=== PATIENT | male | born 1980 | race Hispanic/Latino ===

== ENCOUNTER 2020-08-25 23:54 | Inpatient (IN) | payer SELFPAY ==
[2020-08-26] MEDS ORDERED: Sodium Chloride 0.9% 1,000 ML IV SCH ×2 (03:45→13:00)
[2020-08-26] MEDS ORDERED: Ondansetron ODT 4 MG TAB SL PRN (03:45)
[2020-08-26] MEDS ORDERED: Ondansetron PF 4 MG/2 ML Vial IVP PRN ×2 (03:45→07:55)
[2020-08-26 06:13] VITALS: BMI 30.7
[2020-08-26] MEDS ORDERED: Guaifenesin DM 100-10/5 ML UDCUP PO PRN (07:55)
[2020-08-26] MEDS ORDERED: hydrALAZINE 20 MG/ML VIAL SLOW IVP PRN (07:55)
[2020-08-26] MEDS ORDERED: Ondansetron ODT 4 MG TAB PO PRN (07:55)
[2020-08-26] MEDS ORDERED: Zolpidem Tartrate 5 MG TAB PO PRN (07:55)
[2020-08-26] MEDS ORDERED: Senokot S 8.6-50 MG TAB PO PRN (07:55)
[2020-08-26] MEDS ORDERED: Cepastat Lozenges 1 LOZ PO PRN (07:55)
[2020-08-26] MEDS ORDERED: Loratadine 10 MG TAB PO PRN (07:55)
[2020-08-26] MEDS ORDERED: HYDROcodone/Acetaminophen 5/325 mg Tablet PO PRN (07:55)
[2020-08-26] MEDS ORDERED: Loperamide HCl 2 MG CAP PO PRN (07:55)
[2020-08-26] MEDS ORDERED: Bisacodyl 10 MG SUPP PR PRN (07:55)
[2020-08-26] MEDS ORDERED: Sodium Chloride 0.65% Nasal 44 ML BOT EA NARE PRN (07:55)
[2020-08-26] MEDS ORDERED: Calcium Carbonate 500 MG ChewTAB PO PRN (07:55)
[2020-08-26] MEDS ORDERED: Albuterol 200 PUFF (6.7GM INHALER) INH PRN (08:12)
[2020-08-26] MEDS ORDERED: Enoxaparin Sodium 40 MG/0.4 ML SYRINGE SC SCH (09:00)
[2020-08-26] MEDS ORDERED: Apixaban 5 MG TAB PO SCH (09:00)
[2020-08-26] MEDS ORDERED: FLU VACC QS2020-21(6MOS UP)/PF 60 MCG/0.5 ML SYRINGE IM ONE (09:00)
[2020-08-26] MEDS: Zinc Sulfate 220 MG CAP PO SCH (09:34)
[2020-08-26] MEDS: Cholecalciferol 1,000 UNITS (25 MCG) TAB PO SCH (09:34)
[2020-08-26] MEDS: Famotidine 20 MG TAB PO SCH ×2 (09:34→20:03)
[2020-08-26] MEDS: Ascorbic Acid 500 mg Chewable Tablet PO SCH (09:34)
[2020-08-26] MEDS: Azithromycin 500 MG in Sodium Chloride 0.9% 250 ML 250 ML IVPB SCH (09:35)
[2020-08-26] MEDS: Dexamethasone 4 mg/ml Vial SLOW IVP SCH (09:35)
--- NOTE | 2020-08-26 10:37 | PDOC.HHP ---
Hospitalist HPI - History of Present Illness Shortness of breath History of Present Illness: 39-year-old male who was initially went to [place] emergency room for increasing shortness of breath, he was diagnosed with a Covid about 7 days ago, his symptoms started early this year, initially he was ignoring his symptoms and subsequently he did test for COVID-19, patient reports that 2 days ago he called his primary care physician who prescribed him steroid and he ran out and he was feeling shortness of breath, so he was recommended to go to emergency room, in the emergency room he was found tachypneic and his oxygen saturation was in 70s, patient was initially kept on nonrebreather and subsequently oxygen improved to 90s, subsequently this patient was transferred to our hospital for higher level of care, patient was requiring high flow oxygen, Patient reports that when symptoms started at the time he was having fever fatigue body ache decreased appetite headache but those symptoms are gradually improving, At [place] emergency room patient was given 2 L of fluid, Rocephin and azithromycin, Lovenox 40 mg, dexamethasone 10 mg, ibuprofen 800 mg At [place] emergency room patient had chest x-ray which showed bilateral extensive infiltration consistent with Covid pneumonia, he also had a CT angiography to rule out PE given elevated D-dimer which was negative for PE but consistent with bilateral extensive pneumonia, ED Course: At [place] emergency room patient is given IV fluid, Lovenox, Rocephin azithromycin, dexamethasone, ibuprofen VITAL SIGNS Maia Aug 26, 2020 00:03 Daily RN, Daniel BP: 99/65, Pulse: 81, Resp: 32, Temp: 98.1 (Oral), Pain: 0, O2 sat: 100 on (Non Rebreather), Time: 08/26/2020 00:03. VITAL SIGNS Maia Aug 26, 2020 01:36 MAYUR Lowe Mikayla BP: 93/62, MAP: 72, Pulse: 67, Resp: 34, Temp: 98.2 (Oral), Pain: 0, O2 sat: 97 on (High Flow O2), Time: 08/26/2020 01:36. VITAL SIGNS Maia Aug 26, 2020 00:45 RESP. Sandoval Michael Pulse: 74, Resp: 28, Time: 08/26/2020 00:45. VITAL SIGNS Maia Aug 26, 2020 01:51 MAYUR Lowe Mikayla BP: 94/62, MAP: 73, Pulse: 72, Resp: 32, O2 sat: 99 on (High Flow O2), Time: 08/26/2020 01:51. VITAL SIGNS [facility] Aug 26, 2020 02:08 MAYUR Lowe Mikayla BP: 93/50, MAP: 70, O2 sat: 99 on (High Flow O2), Time: 08/26/2020 02:08. VITAL SIGNS [facility] Aug 26, 2020 02:13 MAYUR Lowe Mikayla BP: 96/62, MAP: 73, Time: 08/26/2020 02:13. Hospitalist ROS - Review of Systems Constitutional: reports: weakness. denies: fever, chills, sweats, malaise, other Eyes: denies: pain, vision change, conjunctivae inflammation, eyelid inflammation, redness, other ENT: denies: ear pain, ear discharge, nose pain, nose discharge, nose congestion, mouth pain, mouth swelling, throat pain, throat swelling, other Respiratory: reports: cough, shortness of breath, SOB with excertion. denies: dry, hemoptysis, pleuritic pain, sputum, wheezing, other Cardiovascular: denies: chest pain, palpitations, orthopnea, paroxysmal noc. dyspnea, edema, light headedness, other Gastrointestinal: denies: nausea, vomiting, abdominal pain, diarrhea, constipation, melena, hematochezia, other Genitourinary: denies: dysuria, frequency, incontinence, hematuria, retention, other Musculoskeletal: denies: neck pain, shoulder pain, arm pain, back pain, hand pain, leg pain, foot pain, other Skin: denies: rash, lesions, diaz, bruising, other - Medication Medications: Active Medications Generic Name Dose Route Start Last Admin Trade Name Freq PRN Reason Stop Dose Admin Apixaban 5 mg 08/26/20 09:00 08/26/20 09:34 Apixaban 5 Mg Tab PO 5 mg BID RAVI Administration Ascorbic Acid 1,000 mg 08/26/20 09:00 08/26/20 09:34 Ascorbic Acid 500 Mg Chewable Tablet PO 1,000 mg DAILY RAVI Administration Cholecalciferol 1,000 units 08/26/20 09:00 08/26/20 09:34 Cholecalciferol 1,000 Units (25 Mcg) Tab PO 1,000 units DAILY RAVI Administration Dexamethasone 6 mg 08/26/20 09:00 08/26/20 09:35 Dexamethasone 4 Mg/Ml Vial SLOW IVP 6 mg DAILY RAVI Administration Famotidine 20 mg 08/26/20 09:00 08/26/20 09:34 Famotidine 20 Mg Tab PO 20 mg BID RAVI Administration Azithromycin 500 mg/ Sodium 250 mls @ 250 mls/hr 08/26/20 09:00 08/26/20 09:35 Chloride IVPB 08/28/20 09:59 250 mls Q24HR RAVI Administration Zinc Sulfate 220 mg 08/26/20 09:00 08/26/20 09:34 Zinc Sulfate 220 Mg Cap PO 220 mg DAILY RAVI Administration Allergies No Known Allergies Allergy (Verified 08/26/20 05:34) Resuscitation Status - Order Detail: 08/26/20 07:55 Resuscitation Status Routine Resuscitation Status: FULL: Full Resuscitation Hospitalist History - Past Medical History Other Medical History: Reviewed and negative - Past Surgical History Other Surgical History: Reviewed and negative - Family History Other Family History: No strong family history of premature coronary artery disease stroke or cancer - Social History Other Social History: Patient lives with family, no history of tobacco alcohol illicit drug abuse - Exam General Appearance: NAD, awake alert Eye: PERRL, anicteric sclera ENT: normocephalic atraumatic, no oropharyngeal lesions Neck: supple, symmetric, no JVD, no thyromegaly Heart: RRR, no gallops, no rubs Respiratory - other findings: Bilateral coarse breath sound Gastrointestinal: soft, non-tender, non-distended, normal bowel sounds Extremities: no cyanosis, no clubbing, no edema Skin: normal turgor, no lesions Neurological: no focal deficits Musculoskeletal: normal tone, normal strength, no muscle wasting Psychiatric: normal affect, normal behavior, A&O x 3 Hospitalist Results - Labs Lab results: C-Reactive Protein 15.90 mg/dL (= or < 0.5) H 08/26/20 08:12 LABORATORY SunAug 25, 2020 19:58 MD Breana, Maico Measurement Result Units Range Lactic Acid for Sepsis Collection DT: SunAug 25, 2020 19:29 Lactic Acid - Sepsis 1.6 mmol/L 0.5-2.2 Measurement Result Units Range B type Natriuretic Peptide Collection DT: SunAug 25, 2020 19:29 B type Natriuretic Peptide Less than 10.0 pg/mL 0-100 Measurement Result Units Range D-Dimer (Quantitative) Collection DT: SunAug 25, 2020 19:29 D-Dimer Test 4.85 - H *mcg/mL 0.27-0.43 * Reference Range Units: mcg/mL of fibrinogen equivalent units(FEU) Based upon a retrospective study of [facility] patients in December 2005, a result of Less than 0.44 mcg/mL FEU is predictive of the absence of a DVT or PE. Measurement Result Units Range Urine Microscopic Collection DT: SunAug 25, 2020 20:23 RBC/HPF 4-6 - A HPF 0-3 WBC/HPF None Seen HPF 0-3 Squamous Epithelial 0-3 HPF 0-3 Bacteria/HPF Rare-Few HPF None Seen Mucous/LPF 1+ LPF <2+ Measurement Result Units Range Urinalysis w/ Rflx Microscopic Collection DT: SunAug 25, 2020 20:23 Color Yellow Yellow Clarity Clear Clear Specific [place], Urine 1.025 1.005-1.030 pH, Urine 5.0 5.0-9.0 Leukocyte Negative Negative Nitrite Negative Negative Protein, Urine (Dipstick) 100 - A mg/dL Neg-Trace Glucose, Urine (Dipstick) Negative mg/dL Negative Ketone, Urine Negative mg/dL Negative Urobilinogen 1.0 mg/dL Less than 2 Bilirubin Small - A Negative CAUTION Urine Bilirubin has a high incidence of false positive results due to urine color interference. Interpret results in conjunction with other clinical findings. Blood, Urine Moderate - A Negative Measurement Result Units Range Drug Screen, Urine Collection DT: SunAug 25, 2020 20:43 THC/Cannabinoid Screen Not Detected NotDetected Phencyclidine (PCP) Not Detected NotDetected Cocaine Metabolite Screen Not Detected NotDetected Methamphetamine Not Detected NotDetected Opiate Screen Not Detected NotDetected Amphetamine Not Detected NotDetected Benzodiazepine Screen Not Detected NotDetected Tricyclic Screen Not Detected NotDetected Methadone Not Detected NotDetected Barbiturates Screen Not Detected NotDetected Oxycodone Screen Not Detected NotDetected Propoxyphene Screen Not Detected NotDetected Drug Screen Cutoff The [employer] Profile-V Panel for Qualitative Drugs of Abuse assays are for presumptive screening testing only. The drug class and detection limits are as follows: Drug Class Detection Limit Amphetamine 500 ng/mL* Barbiturates 200 ng/mL Benzodiazepines 150 ng/mL* Cocaine 150 ng/mL* Methamphetamine 500 ng/mL* Methadone 200 ng/mL* Opiates 100 ng/mL* Oxycodone 100 ng/mL PCP 25 ng/mL Propoxyphene 300 ng/mL Tricyclic Antidepressants 300 ng/mL Cannabinoids (THC) 50 ng/mL Tests which yield a presumptive positive result must be tested using a more specific alternate chemical method in order to obtain a confirmed analytical result. Additional confirmation and identification may be ordered on a routine basis, if desired. Presumptive positive urines are held for two weeks. Additional comment: LABORATORY SunAug 25, 2020 19:41 MD Toussaint Michael Measurement Result Units Range CBC with Differential Collection DT: SunAug 25, 2020 19:29 White Blood Cell (WBC) Count 18.7 - H thou/uL 4.8-10.8 Red Blood Cell (RBC) Count 5.19 mill/uL 4.70-6.10 Hemoglobin 14.9 g/dL 14.0-18.0 Hematocrit 46.2 % 42.0-52.0 Mean Corpuscular Volume 88.9 fL 78.0-98.0 Mean Corpuscular Hemoglobin 28.6 pg 27.0-31.0 Mean Corpuscular HGB CONC 32.2 g/dL 32.0-36.0 RBC Distribution Width 11.6 % 11.5-14.5 Platelet Count 340 thou/uL 130-400 Mean Platelet Volume 7.3 - L fL 7.4-10.4 %Neutrophils 92.7 - H % 42.0-75.0 %Lymphocytes 2.6 - L % 21.0-51.0 %Monocytes 3.6 % 0.0-10.0 %Eosinophils 0.3 % 0.0-10.0 %Basophils 0.8 % 0.0-1.0 #Neutrophils 17.4 - H thou/uL 1.40-6.50 #Lymphocytes 0.5 - L thou/uL 1.20-3.40 #Monocytes 0.7 - H thou/uL 0.11-0.59 #Eosinphils 0.1 thou/uL 0.0-0.7 #Basophils 0.2 thou/uL 0.0-0.2 LABORATORY SunAug 25, 2020 19:58 MD Toussaint Michael Measurement Result Units Range Troponin - I w/ Reflex to CKMB Collection DT: SunAug 25, 2020 19:29 Troponin I 0.011 ng/mL < 0.028 Reference Range 0.00 - 0.028 ng/mL Negative 0.029 - 0.29 ng/mL Indeterminate Greater or Equal to 0.3 ng/mL Strongly suggests [place] LABORATORY SunAug 25, 2020 19:58 MD Toussaint Michael Measurement Result Units Range CK (CPK) Collection DT: SunAug 25, 2020 19:29 CK (CPK) 580 - H U/L 30-200 LABORATORY SunAug 25, 2020 19:58 MD Toussaint Michael Measurement Result Units Range Comprehensive Metabolic Panel Collection DT: SunAug 25, 2020 19:29 Sodium 132 - L mmol/L 136-145 Potassium 4.3 mmol/L 3.5-5.1 Chloride 102 mmol/L 98-107 Carbon Dioxide 20 - L mmol/L 22-29 Anion Gap 14 mmol/L 10-20 BUN (Urea Nitrogen) 29 - H mg/dL 8.9-20.6 Creatinine 1.14 mg/dL 0.7-1.3 Estimated GFR-MDRD 71 Reference Range for Estimated GFR: Greater than 90 mL/min/1.73 m2 NOTE: The MDRD equation has not been validated for use with the elderly (over 70 years of age), women, patients with serious comorbid condition or persons with extremes of body size, muscle mass, or nutritional status. Glucose 110 - H mg/dL 70-105 Calcium 8.9 mg/dL 7.8-10.44 Bilirubin, Total 0.9 mg/dL 0.2-1.2 Protein, Total 7.8 g/dL 6.0-8.3 Albumin 3.4 - L g/dL 3.5-5.0 Globulin 4.4 - H g/dL 2.4-3.5 Alb/Glob Ratio 0.8 - L g/dL 1.2-2.2 Alkaline Phosphatase 63 U/L 40-110 AST (SGOT) 77 - H U/L 5-34 ALT (SGPT) 98 - H U/L 8-55 - Radiology Interpretation Chest x-ray Status: image reviewed by me Additional Comment: FINDINGS: Extensive confluent interstitial and groundglass opacity noted in the right upper lobe, rhonda ateral perihilar regions, and both lung bases. No pneumothorax or large volume pleural effusion. IMPRESSION: Extensive interstitial and groundglass alveolar opacity suspicious for Covid pneumonia. CT scan - chest Status: image reviewed by me Additional Comment: IMPRESSION: Findings concerning for extensive bilateral Covid pneumonia. No evidence for central pulm onary arterial embolism. Hospitalist H&P A/P - Problem (1) Acute respiratory failure due to COVID-19 Code(s): U07.1 - COVID-19; J96.00 - ACUTE RESPIRATORY FAILURE, UNSP W HYPOXIA OR HYPERCAPNIA Status: Acute Assessment and Plan: Patient is requiring high flow oxygen, will ask pharmacy to evaluate for remdesivir, continue dexamethasone, continue high flow oxygen and wean off as tolerated, We will closely monitor for any deterioration, (2) Pneumonia due to 2019 novel coronavirus Code(s): U07.1 - COVID-19; J12.82 - PNEUMONIA DUE TO CORONAVIRUS DISEASE 2019 Status: Acute Assessment and Plan: We have asked pharmacy to evaluate for remdesivir criteria, continue dexamethasone, continue empiric Rocephin and azithromycin, continue vitamin supplementation, continue symptomatic treatment, continue oxygen as per requirement and wean off as tolerated (3) Elevated d-dimer Code(s): R79.89 - OTHER SPECIFIED ABNORMAL FINDINGS OF BLOOD CHEMISTRY Status: Acute Assessment and Plan: Because of her elevated D-dimer we will start Eliquis 2.5 mg p.o. twice daily for prevention of thromboembolic disorder as high risk for developing thromboembolic event (4) Obesity (BMI 30.0-34.9) Code(s): E66.9 - OBESITY, UNSPECIFIED Status: Chronic - Plan Plan: Patient is admitted to the medical floor Continue high flow oxygen Continue Rocephin and azithromycin Continue vitamin supplementation Continue dexamethasone Pharmacy to evaluate for remdesivir We will monitor inflammatory markers Close monitoring for any deterioration DVT prophylaxis Eliquis 2.5 mg twice daily GI prophylaxis Pepcid 20 mg twice daily CODE STATUS patient is full code Disposition plan based on clinical course.
[2020-08-26] MEDS: cefTRIAXone\\ROCEPHIN 1 GM in Sodium Chloride 0.9% 100 ML IVPB SCH (12:49)
[2020-08-26 16:17] LABS: Albumin 2.6 g/dL (3.5-5.0)
[2020-08-26 16:20] LABS: Protein, Total 6.3 g/dL (6.0-8.3)
[2020-08-26 16:21] LABS: Bilirubin, Total 0.4 mg/dL (0.2-1.2)
[2020-08-26 16:22] LABS: Alkaline Phosphatase 61 U/L (40-110); Calc. Creatinine Clearance 162 mL/min (70-130)
[2020-08-26 16:24] LABS: AST (SGOT) 83 U/L (5-34); Bilirubin, Direct 0.2 mg/dL (0.1-0.3)
[2020-08-26 16:25] LABS: ALT (SGPT) 104 U/L (8-55)
[2020-08-26] MEDS ORDERED: REMDESIVIR (EUA) 200 MG in Sodium Chloride 0.9% 250 ML 210 ML IV SCH (18:00)
[2020-08-26] MEDS: Apixaban 2.5 MG TAB PO SCH (20:03)
[2020-08-27 06:25] LABS: Mean Corpuscular HGB CONC 31.2 g/dL (32.0-36.0); Mean Corpuscular Hemoglobin 28.4 pg (27.0-31.0); Mean Corpuscular Volume 90.9 fL (78.0-98.0); Mean Platelet Volume 7.8 fL (7.4-10.4); Platelet Count 322 thou/uL (130-400); RBC Distribution Width 12.3 % (11.5-14.5); Red Blood Cell (RBC) Count 4.58 mill/uL (4.70-6.10); White Blood Cell (WBC) Count 21.7 thou/uL (4.8-10.8)
[2020-08-27 06:39] LABS: ALT (SGPT) 85 U/L (8-55); AST (SGOT) 57 U/L (5-34); Albumin 2.7 g/dL (3.5-5.0); Alkaline Phosphatase 61 U/L (40-110); Anion Gap 13 mmol/L (10-20); BUN (Urea Nitrogen) 21 mg/dL (8.9-20.6); Bilirubin, Total 0.4 mg/dL (0.2-1.2); Calc. Creatinine Clearance 144 mL/min (70-130); Calcium 8.2 mg/dL (7.8-10.44); Carbon Dioxide 21 mmol/L (22-29); Chloride 109 mmol/L (98-107); Globulin 3.8 g/dL (2.4-3.5); Glucose 88 mg/dL (70-105); Potassium 4.3 mmol/L (3.5-5.1); Protein, Total 6.5 g/dL (6.0-8.3); Sodium 139 mmol/L (136-145)
[2020-08-27 08:21] LABS: Band 12 % (5-11); Lymphocytes 10 % (21-51); MDiff Complete? YES; Monocytes 1 % (0-10); Neutrophil 75 % (42-75); Platelet Morphology Comment Appears Adequate; Polychromasia SLIGHT = 2-3 cells (100X) (0-2/hpf); Reactive Lymphocytes 2 % (0-10)
[2020-08-27] MEDS: Dexamethasone 4 mg/ml Vial SLOW IVP SCH (08:49)
[2020-08-27] MEDS: Zinc Sulfate 220 MG CAP PO SCH (08:49)
[2020-08-27] MEDS: Famotidine 20 MG TAB PO SCH ×2 (08:49→21:29)
[2020-08-27] MEDS: Apixaban 2.5 MG TAB PO SCH (08:50)
[2020-08-27] MEDS: Cholecalciferol 1,000 UNITS (25 MCG) TAB PO SCH (08:50)
[2020-08-27] MEDS: Ascorbic Acid 500 mg Chewable Tablet PO SCH (08:50)
[2020-08-27] MEDS: cefTRIAXone\\ROCEPHIN 1 GM in Sodium Chloride 0.9% 100 ML IVPB SCH (08:51)
[2020-08-27] MEDS: Azithromycin 500 MG in Sodium Chloride 0.9% 250 ML 250 ML IVPB SCH (08:51)
--- NOTE | 2020-08-27 10:40 | PDOC.HOSPP ---
- Subjective Encounter Date: 08/27/20 Encounter Time: 08:15 Subjective: This morning patient is tachypneic, he was hypoxic despite increased amount of oxygen on high flow, he was barely maintaining saturation up to 85 to 86% with high flow oxygen, we decided to move him to [facility] for close monitoring, - Objective Vital Signs & Weight: Vital Signs (12 hours) Temp Pulse Resp BP Pulse Ox 08/27/20 10:15 83 08/27/20 08:06 98.3 F 81 20 92/51 L 88 L 08/27/20 04:55 97.7 F 76 18 111/71 93 L 08/27/20 00:00 97.7 F 81 18 101/65 96 Weight Admit Weight 190 lb Weight 190 lb I&O: 08/26/20 08/27/20 08/28/20 06:59 06:59 06:59 Intake Total 240 Output Total 900 Balance -660 Result Diagrams: 08/27/20 06:00 08/27/20 06:00 Hospitalist ROS - Review of Systems Constitutional: reports: weakness, malaise Eyes: denies: pain, vision change, conjunctivae inflammation, eyelid inflammation, redness, other Respiratory: reports: cough, shortness of breath, SOB with excertion. denies: dry, hemoptysis, pleuritic pain, sputum, wheezing, other Cardiovascular: denies: chest pain, palpitations, orthopnea, paroxysmal noc. dyspnea, edema, light headedness, other Gastrointestinal: denies: nausea, vomiting, abdominal pain, diarrhea, constipation, melena, hematochezia, other Genitourinary: denies: dysuria, frequency, incontinence, hematuria, retention, o ther Musculoskeletal: denies: neck pain, shoulder pain, arm pain, back pain, hand pain, leg pain, foot pain, other - Medication Medications: Active Medications Generic Name Dose Route Start Last Admin Trade Name Freq PRN Reason Stop Dose Admin Apixaban 2.5 mg 08/26/20 21:00 08/27/20 08:50 Apixaban 2.5 Mg Tab PO 2.5 mg BID RAVI Administration Ascorbic Acid 1,000 mg 08/26/20 09:00 08/27/20 08:50 Ascorbic Acid 500 Mg Chewable Tablet PO 1,000 mg DAILY RAVI Administration Cholecalciferol 1,000 units 08/26/20 09:00 08/27/20 08:50 Cholecalciferol 1,000 Units (25 Mcg) Tab PO 1,000 units DAILY RAVI Administration Dexamethasone 6 mg 08/26/20 09:00 08/27/20 08:49 Dexamethasone 4 Mg/Ml Vial SLOW IVP 6 mg DAILY RAVI Administration Famotidine 20 mg 08/26/20 09:00 08/27/20 08:49 Famotidine 20 Mg Tab PO 20 mg BID RAVI Administration Guaifenesin/Dextromethorphan 15 ml 08/26/20 07:55 08/26/20 11:53 Guaifenesin Dm 100-10/5 Ml Udcup PO 15 ml Q4H PRN Administration Cough Ceftriaxone Sodium 1 gm/ 100 mls @ 200 mls/hr 08/26/20 09:00 08/27/20 08:51 Sodium Chloride IVPB 08/30/20 09:29 100 mls Q24HR RAVI Administration Azithromycin 500 mg/ Sodium 250 mls @ 250 mls/hr 08/26/20 09:00 08/27/20 08:51 Chloride IVPB 08/28/20 09:59 250 mls Q24HR RAVI Administration Zinc Sulfate 220 mg 08/26/20 09:00 08/27/20 08:49 Zinc Sulfate 220 Mg Cap PO 220 mg DAILY RAVI Administration - Exam General Appearance: NAD, ill appearing Eye: PERRL, anicteric sclera ENT: normocephalic atraumatic, no oropharyngeal lesions Neck: supple, symmetric, no JVD, no thyromegaly Heart: RRR, no gallops, no rubs Heart - other findings: Slight tachycardia Respiratory: tachypneic Respiratory - other findings: Bilateral coarse breath sounds with rales, Gastrointestinal: soft, non-tender, non-distended, normal bowel sounds Extremities: no cyanosis, no clubbing, no edema Skin: normal turgor, no lesions Neurological: no focal deficits Musculoskeletal: normal tone, normal strength Psychiatric: normal affect, normal behavior Hosp A/P (1) Acute respiratory failure due to COVID-19 Code(s): U07.1 - COVID-19; J96.00 - ACUTE RESPIRATORY FAILURE, UNSP W HYPOXIA OR HYPERCAPNIA Status: Acute (2) Pneumonia due to 2019 novel coronavirus Code(s): U07.1 - COVID-19; J12.82 - PNEUMONIA DUE TO CORONAVIRUS DISEASE 2019 Status: Acute (3) Elevated d-dimer Code(s): R79.89 - OTHER SPECIFIED ABNORMAL FINDINGS OF BLOOD CHEMISTRY Status: Acute (4) Obesity (BMI 30.0-34.9) Code(s): E66.9 - OBESITY, UNSPECIFIED Status: Chronic - Plan old records reviewed/req, continue antibiotics, respiratory therapy Despite maximum trial of treatment his condition appears to be deteriorated and he is at high risk for deterioration, Currently on maximum high flow still he is hypoxic, he will need IMCU transfer and will try BiPAP Continue remdesivir Continue Rocephin and azithromycin Continue vitamin supplementation and dexamethasone Medication reviewed and continue provide symptomatic and supportive care Pulmonary consultation Patient will need close monitoring for any further deterioration, Continue Eliquis for DVT prophylaxis
[2020-08-27] MEDS: Lorazepam 2 MG/ML VIAL SLOW IVP PRN (12:57)
--- NOTE | 2020-08-27 15:44 | CON ---
DATE OF CONSULTATION: 08/27/2020 REASON FOR CONSULTATION: Hypoxemic respiratory failure related to COVID pneumonia. HISTORY OF PRESENT ILLNESS: The patient is a 39-year-old male, who was admitted to the hospital yesterday with increasing shortness of breath and pneumonia from COVID-19 infection. It is not clear to me how long he has been symptomatic. He has been assigned to go down to the ICU to be placed on BiPAP. He is taking his mask off in order to eat. PAST MEDICAL HISTORY: None. PAST SURGICAL HISTORY: None. SOCIAL HISTORY: Does not smoke. Does not drink. Does not use illicit drugs. ALLERGIES: NONE. MEDICATIONS: Prior to admission, Claritin. REVIEW OF SYSTEMS: Remarkable for fatigue, cough, and congestion. PHYSICAL EXAMINATION: VITAL SIGNS: Temperature 99.3, pulse 92, respirations 40, O2 saturation 100% on BiPAP, and blood pressure 106/62. GENERAL: He is a middle-aged male, who actually tolerates hypoxemia quite well off the BiPAP. HEENT: Unremarkable. NECK: No adenopathy or JVD. LUNGS: Diffuse crackles. CARDIAC: S1 and S2. Regular. ABDOMEN: Soft. EXTREMITIES: No edema. LABORATORY DATA: White blood cell count 21, hematocrit 41, and platelet count 322. D-dimer 3.8, sodium 139, potassium 4.3, chloride 109, CO2 of 21, BUN 21, creatinine 0.8, and glucose 88. ASSESSMENT: 1. COVID-19 pneumonia. 2. Acute hypoxic respiratory failure. RECOMMENDATIONS: In addition to BiPAP and steroids, I would go ahead and give the patient convalescent plasma. His prognosis is quite poor. We will follow with you. Job ID: [id number]
[2020-08-27] MEDS ORDERED: Apixaban 2.5 MG TAB PO SCH (16:00)
[2020-08-27] MEDS: REMDESIVIR (EUA) 100 MG in Sodium Chloride 0.9% 250 ML 230 ML IV SCH (18:08)
[2020-08-27] MEDS: Apixaban 5 MG TAB PO SCH (21:29)
[2020-08-28] MEDS: Acetaminophen 325 MG TAB PO PRN ×2 (03:45→09:36)
[2020-08-28] MEDS: Lorazepam 2 MG/ML VIAL SLOW IVP PRN (03:45)
[2020-08-28 04:09] LABS: Anion Gap 12 mmol/L (10-20); BUN (Urea Nitrogen) 22 mg/dL (8.9-20.6); Calc. Creatinine Clearance 136 mL/min (70-130); Calcium 8.4 mg/dL (7.8-10.44); Carbon Dioxide 24 mmol/L (22-29); Chloride 102 mmol/L (98-107); Glucose 71 mg/dL (70-105); Potassium 4.4 mmol/L (3.5-5.1); Sodium 134 mmol/L (136-145)
[2020-08-28 04:30] LABS: Band 3 % (5-11); Hemoglobin 13.6 g/dL (14.0-18.0); Lymphocytes 3 % (21-51); MDiff Complete? YES; Mean Corpuscular HGB CONC 32.5 g/dL (32.0-36.0); Mean Corpuscular Hemoglobin 29.6 pg (27.0-31.0); Mean Corpuscular Volume 91.1 fL (78.0-98.0); Mean Platelet Volume 7.8 fL (7.4-10.4); Monocytes 1 % (0-10); Neutrophil 93 % (42-75); Platelet Count 317 thou/uL (130-400); RBC Distribution Width 12.4 % (11.5-14.5); Red Blood Cell (RBC) Count 4.59 mill/uL (4.70-6.10); White Blood Cell (WBC) Count 15.7 thou/uL (4.8-10.8)
[2020-08-28] MEDS ORDERED: Furosemide 40 MG/4 ML VIAL SLOW IVP SCH (08:00)
--- NOTE | 2020-08-28 08:43 | RAD ---
XR Chest 1 View Portable History: Pneumonia Comparison: Radiograph 3 days prior Findings: Multifocal airspace opacities are slightly worse. No pneumothorax. No effusion. No acute os seous abnormality. Impression: Slight worsening lung aeration.
[2020-08-28] MEDS: Ascorbic Acid 500 mg Chewable Tablet PO SCH ×2 (09:00→09:21)
[2020-08-28] MEDS: Cholecalciferol 1,000 UNITS (25 MCG) TAB PO SCH ×2 (09:00→09:22)
[2020-08-28] MEDS: Zinc Sulfate 220 MG CAP PO SCH ×2 (09:00→09:22)
[2020-08-28] MEDS: Apixaban 5 MG TAB PO SCH ×3 (09:00→20:50)
[2020-08-28] MEDS: cefTRIAXone\\ROCEPHIN 1 GM in Sodium Chloride 0.9% 100 ML IVPB SCH (09:23)
[2020-08-28] MEDS: Dexamethasone 4 mg/ml Vial SLOW IVP SCH (09:30)
--- NOTE | 2020-08-28 10:48 | PDOC.HOSPP ---
- Subjective Encounter Date: 08/28/20 Encounter Time: 10:20 Subjective: Patient seen and examined bedside today, this morning patient is on BiPAP, patient is on Precedex drip, - Objective Vital Signs & Weight: Vital Signs (12 hours) Temp Pulse Pulse Ox 08/28/20 10:30 71 08/28/20 09:36 101.2 F H 08/28/20 05:00 102.1 F H 08/28/20 04:00 101.7 F H 90 L 08/28/20 03:45 101.7 F H 08/28/20 01:13 66 96 08/28/20 01:00 97.2 F L 08/28/20 00:00 99.7 F H Weight Admit Weight 190 lb Weight 190 lb Most Recent Monitor Data Heart Rate from ECG 78 NIBP 124/64 NIBP BP-Mean 84 Respiration from ECG 43 SpO2 98 I&O: 08/27/20 08/28/20 08/29/20 06:59 06:59 06:59 Intake Total 240 782 Output Total 900 850 Balance -660 -68 Result Diagrams: 08/28/20 03:14 08/28/20 03:14 Radiology Reviewed by me: Yes (Chest x-ray reviewed) EKG Reviewed by me: Yes (Sinus rhythm) Hospitalist ROS - Review of Systems Constitutional: reports: weakness, malaise ENT: denies: ear pain, ear discharge, nose pain, nose discharge, nose congestion, mouth pain, mouth swelling, throat pain, throat swelling, other Respiratory: reports: shortness of breath, SOB with excertion. denies: cough, dry, hemoptysis, pleuritic pain, sputum, wheezing, other Cardiovascular: denies: chest pain, palpitations, orthopnea, paroxysmal noc. dyspnea, edema, light headedness, other Gastrointestinal: denies: nausea, vomiting, abdominal pain, diarrhea, constipation, melena, hematochezia, other Genitourinary: denies: dysuria, frequency, incontinence, hematuria, retention, other Musculoskeletal: denies: neck pain, shoulder pain, arm pain, back pain, hand pain, leg pain, foot pain, other Skin: denies: rash, lesions, diza, bruising, other - Medication Medications: Active Medications Generic Name Dose Route Start Last Admin Trade Name Freq PRN Reason Stop Dose Admin Acetaminophen 650 mg 08/26/20 07:55 08/28/20 09:36 Acetaminophen 325 Mg Tab PO 650 mg Q4H PRN Administration Headache/Fever/Mild Pain (1-3) Apixaban 5 mg 08/27/20 21:00 08/28/20 09:22 Apixaban 5 Mg Tab PO 5 mg BID RAVI Administration Ascorbic Acid 1,000 mg 08/26/20 09:00 08/28/20 09:21 Ascorbic Acid 500 Mg Chewable Tablet PO 1,000 mg DAILY RAVI Administration Cholecalciferol 1,000 units 08/26/20 09:00 08/28/20 09:22 Cholecalciferol 1,000 Units (25 Mcg) Tab PO 1,000 units DAILY RAVI Administration Dexamethasone 6 mg 08/26/20 09:00 08/28/20 09:30 Dexamethasone 4 Mg/Ml Vial SLOW IVP 6 mg DAILY RAVI Administration Guaifenesin/Dextromethorphan 15 ml 08/26/20 07:55 08/26/20 11:53 Guaifenesin Dm 100-10/5 Ml Udcup PO 15 ml Q4H PRN Administration Cough Ceftriaxone Sodium 1 gm/ 100 mls @ 200 mls/hr 08/26/20 09:00 08/28/20 09:23 Sodium Chloride IVPB 08/30/20 09:29 100 mls Q24HR RAVI Administration Remdesivir 100 mg/ Sodium 250 mls @ 250 mls/hr 08/27/20 18:00 08/27/20 18:08 Chloride IV 08/30/20 18:59 250 mls 1800 RAVI Administration Dexmedetomidine HCl 400 mcg/ 100 mls @ 0 mls/hr 08/27/20 16:00 08/28/20 05:53 Sodium Chloride IVPB 100 mls INF RAVI Administration Protocol Per Protocol Lorazepam 0.5 mg 08/27/20 11:09 08/28/20 03:45 Lorazepam 2 Mg/Ml Vial SLOW IVP 0.5 mg Q6H PRN Administration Anxiety/Agitation Zinc Sulfate 220 mg 08/26/20 09:00 08/28/20 09:22 Zinc Sulfate 220 Mg Cap PO 220 mg DAILY RAVI Administration - Exam General Appearance: NAD, ill appearing Eye: PERRL, anicteric sclera ENT: normocephalic atraumatic, no oropharyngeal lesions Neck: supple, symmetric, no JVD, no thyromegaly Heart: RRR, no murmur, no gallops, no rubs Respiratory - other findings: Bilateral scattered coarse rales noted Gastrointestinal: soft, non-tender, non-distended, normal bowel sounds Extremities: no cyanosis, no clubbing, no edema Skin: normal turgor, no lesions Neurological: no focal deficits Musculoskeletal: normal tone, normal strength Psychiatric: normal affect, normal behavior Hosp A/P (1) Acute respiratory failure due to COVID-19 Code(s): U07.1 - COVID-19; J96.00 - ACUTE RESPIRATORY FAILURE, UNSP W HYPOXIA OR HYPERCAPNIA Status: Acute (2) Pneumonia due to 2019 novel coronavirus Code(s): U07.1 - COVID-19; J12.82 - PNEUMONIA DUE TO CORONAVIRUS DISEASE 2019 Status: Acute (3) Elevated d-dimer Code(s): R79.89 - OTHER SPECIFIED ABNORMAL FINDINGS OF BLOOD CHEMISTRY Status: Acute (4) Obesity (BMI 30.0-34.9) Code(s): E66.9 - OBESITY, UNSPECIFIED Status: Chronic - Plan old records reviewed/req, continue antibiotics, respiratory therapy Continue remdesivir as per protocol S/p convalescent plasma Continue empiric Rocephin and azithromycin Continue dexamethasone Patient is requiring BiPAP Continue Precedex for slight sedation Continue vitamin supplementation Patient will be monitored in IMCU for any deterioration, Pulmonology recommendation appreciated Continue Eliquis for DVT prophylaxis
[2020-08-28] MEDS: Pantoprazole 40 MG VIAL IVP SCH (10:57)
[2020-08-28] MEDS: Azithromycin 500 MG in Sodium Chloride 0.9% 250 ML 250 ML IVPB SCH (12:00)
--- NOTE | 2020-08-28 13:39 | PRG ---
DATE OF SERVICE: 08/28/2020 SUBJECTIVE: The patient remains on BiPAP. He is awake and is able follow commands. OBJECTIVE: VITAL SIGNS: Temperature 99.9 with a T-max of 102.1, pulse 73, blood pressure 111/66. HEENT: Unremarkable. NECK: No adenopathy or JVD. LUNGS: Diffuse crackles. CARDIAC: S1, S2. Regular. ABDOMEN: Soft. EXTREMITIES: No edema. IMAGING: His chest x-ray shows continued bilateral infiltrates, right greater than left. LABORATORY DATA: White blood cell count 15.7, hematocrit 41.8, and platelet count 317. Sodium 134, potassium 4.4, chloride 102, CO2 of 24, BUN 22, creatinine 0.8, glucose 71. C-reactive protein is 15.4. ASSESSMENT: 1. COVID-19 pneumonia. 2. Acute hypoxic respiratory failure. PLAN: Continue anticoagulation, steroids, and BiPAP. He is on Precedex to help him with issues with agitation. Hopefully, we can avoid intubating him. Job ID: [id number]
[2020-08-28] MEDS: Dextrose 5 %-0.45 % NaCl 1,000 ML IV SCH (15:33)
[2020-08-28] MEDS: REMDESIVIR (EUA) 100 MG in Sodium Chloride 0.9% 250 ML 230 ML IV SCH (17:28)
[2020-08-29] MEDS: Dextrose 5 %-0.45 % NaCl 1,000 ML IV SCH ×2 (03:00→18:29)
[2020-08-29 04:22] LABS: #Lymphocytes 0.6 thou/uL (1.20-3.40); #Monocytes 0.3 thou/uL (0.11-0.59); #Neutrophils 8.6 thou/uL (1.40-6.50); %Basophils 0.1 % (0.0-1.0); %Eosinophils 0.2 % (0.0-10.0); %Lymphocytes 5.7 % (21.0-51.0); %Monocytes 3.6 % (0.0-10.0); %Neutrophils 90.5 % (42.0-75.0); Hemoglobin 13.4 g/dL (14.0-18.0); Mean Corpuscular Hemoglobin 29.6 pg (27.0-31.0); Mean Corpuscular Volume 92.3 fL (78.0-98.0); Platelet Count 268 thou/uL (130-400); RBC Distribution Width 12.4 % (11.5-14.5); Red Blood Cell (RBC) Count 4.54 mill/uL (4.70-6.10); White Blood Cell (WBC) Count 9.5 thou/uL (4.8-10.8)
[2020-08-29 05:04] LABS: Anion Gap 13 mmol/L (10-20); BUN (Urea Nitrogen) 27 mg/dL (8.9-20.6); Calc. Creatinine Clearance 120 mL/min (70-130); Calcium 8.6 mg/dL (7.8-10.44); Carbon Dioxide 25 mmol/L (22-29); Chloride 102 mmol/L (98-107); Glucose 121 mg/dL (70-105); Potassium 4.9 mmol/L (3.5-5.1); Sodium 135 mmol/L (136-145)
--- NOTE | 2020-08-29 09:26 | PRG ---
DATE OF SERVICE: 08/29/2020 35 minutes critical care time. SUBJECTIVE: The patient remains on BiPAP. He is doing much better than yesterday. The FiO2 has been weaned down to about 50%. OBJECTIVE: VITAL SIGNS: Temperature 96.9, pulse 65, blood pressure 105/64, O2 saturation 98%. HEENT: Unremarkable. NECK: No adenopathy or JVD. LUNGS: Crackles bilaterally. CARDIAC: S1, S2. Regular. ABDOMEN: Soft. EXTREMITIES: No edema. LABORATORY DATA: White blood cell count 9.5, hematocrit 41.9, and platelet count 268. Sodium 135, potassium 4.9, chloride 102, CO2 of 25, BUN 27, creatinine 1.0, and glucose 121. IMAGING: X-ray shows bilateral infiltrates. ASSESSMENT: COVID-19 pneumonia. PLAN: The patient will be done with remdesivir on the . He is on IV steroids and anticoagulation. He continues on Precedex as needed for agitation. Job ID: [id number]
[2020-08-29] MEDS: cefTRIAXone\\ROCEPHIN 1 GM in Sodium Chloride 0.9% 100 ML IVPB SCH (09:36)
[2020-08-29] MEDS: Pantoprazole 40 MG VIAL IVP SCH (09:36)
[2020-08-29] MEDS: Dexamethasone 4 mg/ml Vial SLOW IVP SCH (09:36)
--- NOTE | 2020-08-29 09:38 | RAD ---
EXAM: CHEST ONE VIEW HISTORY: Pneumonia. Follow-up evaluation COMPARISON: 08/28/2020 FINDINGS: Cardiac silhouette is stable in size. Multifocal parenchymal airspace opacities are seen within the l ungs bilaterally overall similar in distribution and appearance compared to prior exam. No other interval change. IMPRESSION: Covid pneumonia with parenchymal airspace opacities overall similar to recent exam.
--- NOTE | 2020-08-29 11:32 | PDOC.HOSPP ---
- Subjective Encounter Date: 08/29/20 Encounter Time: 10:20 Subjective: Patient seen and examined bedside today, patient is on BiPAP, no overnight event, - Objective Vital Signs & Weight: Vital Signs (12 hours) Temp Pulse Pulse Ox 08/29/20 10:38 77 08/29/20 04:00 96.9 F L 08/29/20 00:43 48 L 100 08/29/20 00:00 97 F L Weight Admit Weight 190 lb Weight 190 lb Most Recent Monitor Data Heart Rate from ECG 65 NIBP 105/64 NIBP BP-Mean 77 Respiration from ECG 36 SpO2 98 I&O: 08/28/20 08/29/20 08/30/20 06:59 06:59 06:59 Intake Total 782 1164 Output Total 850 2750 Balance -68 -7961 Result Diagrams: 08/29/20 03:40 08/29/20 03:40 EKG Reviewed by me: Yes (Sinus rhythm) Hospitalist ROS - Review of Systems ENT: denies: ear pain, ear discharge, nose pain, nose discharge, nose congestion, mouth pain, mouth swelling, throat pain, throat swelling, other Respiratory: reports: cough, shortness of breath, SOB with excertion. denies: dry, hemoptysis, pleuritic pain, sputum, wheezing, other Cardiovascular: denies: chest pain, palpitations, orthopnea, paroxysmal noc. dyspnea, edema, light headedness, other Gastrointestinal: denies: nausea, vomiting, abdominal pain, diarrhea, constipation, melena, hematochezia, other Genitourinary: denies: dysuria, frequency, incontinence, hematuria, retention, other Musculoskeletal: denies: neck pain, shoulder pain, arm pain, back pain, hand pain, leg pain, foot pain, other - Medication Medications: Active Medications Generic Name Dose Route Start Last Admin Trade Name Freq PRN Reason Stop Dose Admin Acetaminophen 650 mg 08/26/20 07:55 08/28/20 03:45 Acetaminophen 325 Mg Tab PO 650 mg Q4H PRN Administration Headache/Fever/Mild Pain (1-3) Apixaban 5 mg 08/27/20 21:00 08/28/20 20:50 Apixaban 5 Mg Tab PO Not Given BID [facility] Ascorbic Acid 1,000 mg 08/26/20 09:00 08/28/20 09:00 Ascorbic Acid 500 Mg Chewable Tablet PO Not Given DAILY RAVI Cholecalciferol 1,000 units 08/26/20 09:00 08/28/20 09:00 Cholecalciferol 1,000 Units (25 Mcg) Tab PO Not Given DAILY RAVI Dexamethasone 6 mg 08/26/20 09:00 08/29/20 09:36 Dexamethasone 4 Mg/Ml Vial SLOW IVP 6 mg DAILY RAVI Administration Guaifenesin/Dextromethorphan 15 ml 08/26/20 07:55 08/26/20 11:53 Guaifenesin Dm 100-10/5 Ml Udcup PO 15 ml Q4H PRN Administration Cough Ceftriaxone Sodium 1 gm/ 100 mls @ 200 mls/hr 08/26/20 09:00 08/29/20 09:36 Sodium Chloride IVPB 08/30/20 09:29 100 mls Q24HR RAVI Administration Remdesivir 100 mg/ Sodium 250 mls @ 250 mls/hr 08/27/20 18:00 08/28/20 17:28 Chloride IV 08/30/20 18:59 250 mls 1800 RAVI Administration Dexmedetomidine HCl 400 mcg/ 100 mls @ 0 mls/hr 08/27/20 16:00 08/29/20 03:31 Sodium Chloride IVPB 100 mls INF RAVI Administration Protocol Per Protocol Dextrose/Sodium Chloride 1,000 mls @ 75 mls/hr 08/28/20 14:00 08/29/20 03:00 D5 1/2 Ns IV 1,000 mls .[id number] RAVI Administration Lorazepam 0.5 mg 08/27/20 11:09 08/28/20 03:45 Lorazepam 2 Mg/Ml Vial SLOW IVP 0.5 mg Q6H PRN Administration Anxiety/Agitation Pantoprazole Sodium 40 mg 08/28/20 09:00 08/29/20 09:36 Pantoprazole 40 Mg Vial IVP 40 mg DAILY RAVI Administration Zinc Sulfate 220 mg 08/26/20 09:00 08/28/20 09:00 Zinc Sulfate 220 Mg Cap PO Not Given DAILY RAVI - Exam General Appearance: NAD, awake alert Eye: PERRL, anicteric sclera ENT: normocephalic atraumatic, no oropharyngeal lesions Neck: supple, symmetric, no JVD, no thyromegaly Heart: RRR, no murmur, no gallops, no rubs Respiratory: no wheezes, no ronchi, no tachypnea Respiratory - other findings: Grossly clear to auscultation but reduced air entry at base Gastrointestinal: soft, non-tender, non-distended, normal bowel sounds Extremities: no cyanosis, no clubbing, no edema Skin: normal turgor, no lesions Neurological: no focal deficits Musculoskeletal: normal tone, normal strength Psychiatric: normal affect, normal behavior Hosp A/P (1) Acute respiratory failure due to COVID-19 Code(s): U07.1 - COVID-19; J96.00 - ACUTE RESPIRATORY FAILURE, UNSP W HYPOXIA OR HYPERCAPNIA Status: Acute (2) Pneumonia due to 2019 novel coronavirus Code(s): U07.1 - COVID-19; J12.82 - PNEUMONIA DUE TO CORONAVIRUS DISEASE 2019 Status: Acute (3) Elevated d-dimer Code(s): R79.89 - OTHER SPECIFIED ABNORMAL FINDINGS OF BLOOD CHEMISTRY Status: Acute (4) Obesity (BMI 30.0-34.9) Code(s): E66.9 - OBESITY, UNSPECIFIED Status: Chronic - Plan old records reviewed/req, continue antibiotics, respiratory therapy Continue remdesivir as per protocol S/p convalescent plasma Continue empiric Rocephin and azithromycin Continue dexamethasone Patient is requiring BiPAP Continue Precedex for slight sedation Continue vitamin supplementation Patient will be monitored in IMCU for any deterioration, Pulmonology recommendation appreciated Continue Eliquis for DVT prophylaxis Monitor labs and inflammatory markers
[2020-08-29] MEDS: REMDESIVIR (EUA) 100 MG in Sodium Chloride 0.9% 250 ML 230 ML IV SCH (17:06)
[2020-08-29] MEDS: Zinc Sulfate 220 MG CAP PO SCH (17:07)
[2020-08-29] MEDS: Apixaban 5 MG TAB PO SCH ×2 (17:08→22:49)
[2020-08-29] MEDS: Ascorbic Acid 500 mg Chewable Tablet PO SCH (17:13)
[2020-08-29] MEDS: Cholecalciferol 1,000 UNITS (25 MCG) TAB PO SCH (17:13)
[2020-08-30 03:34] LABS: #Lymphocytes 0.5 thou/uL (1.20-3.40); #Monocytes 0.5 thou/uL (0.11-0.59); #Neutrophils 14.8 thou/uL (1.40-6.50); %Basophils 0.2 % (0.0-1.0); %Eosinophils 0.1 % (0.0-10.0); %Lymphocytes 3.4 % (21.0-51.0); %Monocytes 3.1 % (0.0-10.0); %Neutrophils 93.1 % (42.0-75.0); Hemoglobin 14.4 g/dL (14.0-18.0); Mean Corpuscular HGB CONC 32.6 g/dL (32.0-36.0); Mean Corpuscular Volume 91.9 fL (78.0-98.0); Mean Platelet Volume 8.1 fL (7.4-10.4); Platelet Count 304 thou/uL (130-400); RBC Distribution Width 12.3 % (11.5-14.5); White Blood Cell (WBC) Count 15.9 thou/uL (4.8-10.8)
[2020-08-30 03:52] LABS: Anion Gap 11 mmol/L (10-20); BUN (Urea Nitrogen) 24 mg/dL (8.9-20.6); Calc. Creatinine Clearance 133 mL/min (70-130); Calcium 8.6 mg/dL (7.8-10.44); Carbon Dioxide 27 mmol/L (22-29); Chloride 101 mmol/L (98-107); Glucose 113 mg/dL (70-105); Potassium 4.7 mmol/L (3.5-5.1); Sodium 134 mmol/L (136-145)
[2020-08-30] MEDS: Dextrose 5 %-0.45 % NaCl 1,000 ML IV SCH ×3 (06:31→20:15)
--- NOTE | 2020-08-30 08:42 | RAD ---
Portable frontal chest radiograph: 08/30/2020 COMPARISON: 08/29/2020 HISTORY: Pneumonia FINDINGS: There is no pneumothorax seen on either side. Heart and mediastinal contours appear stable. There are coarse linear interstitial densities with superimposed areas of airspace disease noted with in the right upper lobe, the mid right lung zone, and both lung bases, right greater than left. Findings are not significantly changed when compared to the 08/29/2020 exam. IMPRESSION: Stable appearance of the chest as detailed above.
[2020-08-30] MEDS: Dexamethasone 4 mg/ml Vial SLOW IVP SCH (09:00)
[2020-08-30] MEDS: cefTRIAXone\\ROCEPHIN 1 GM in Sodium Chloride 0.9% 100 ML IVPB SCH (09:00)
--- NOTE | 2020-08-30 09:01 | PRG ---
DATE OF SERVICE: 08/30/2020 This is a 35 minutes critical care time. SUBJECTIVE: The patient remains on BiPAP. Apparently, has not eaten any. OBJECTIVE: VITAL SIGNS: Temperature 97.8, pulse 75, blood pressure 105/71, and O2 saturation 99%. A 24-hour intake 2644 and output 2270. HEENT: Unremarkable. NECK: No adenopathy or JVD. LUNGS: Bilateral crackles. ABDOMEN: Soft and nontender. EXTREMITIES: No clubbing, cyanosis, or edema. LABORATORY DATA: Sodium 134, potassium 4.7, chloride 101, CO2 of 27, BUN 24, creatinine 0.9, and glucose 113. White blood cell count 15.9, hematocrit 44.1, and platelet count 304. ASSESSMENT: 1. COVID-19 pneumonia. 2. Acute respiratory failure requiring mechanical ventilation. PLAN: Basically supportive care with steroids, blood thinners, etc. The patient finishes remdesivir today. Job ID: [id number]
--- NOTE | 2020-08-30 12:01 | PDOC.HOSPP ---
- Subjective Encounter Date: 08/30/20 Encounter Time: 10:45 Subjective: Patient is on BiPAP, no overnight event, - Objective Vital Signs & Weight: Vital Signs (12 hours) Temp Pulse Pulse Ox 08/30/20 04:00 97.8 F 08/30/20 02:59 65 99 Weight Admit Weight 190 lb Weight 190 lb Most Recent Monitor Data Heart Rate from ECG 75 NIBP 105/71 NIBP BP-Mean 82 Respiration from ECG 33 SpO2 99 I&O: 08/29/20 08/30/20 08/31/20 06:59 06:59 06:59 Intake Total 1164 2644.4 Output Total 2750 2270 Balance -1586 374.4 Result Diagrams: 08/30/20 03:00 08/30/20 03:00 Radiology Reviewed by me: Yes (Chest x-ray reviewed) EKG Reviewed by me: Yes (Sinus rhythm) Hospitalist ROS - Review of Systems Constitutional: reports: weakness, malaise. denies: fever, chills, sweats, other Respiratory: reports: shortness of breath, SOB with excertion. denies: cough, dry, hemoptysis, pleuritic pain, sputum, wheezing, other Cardiovascular: denies: chest pain, palpitations, orthopnea, paroxysmal noc. dyspnea, edema, light headedness, other Gastrointestinal: denies: nausea, vomiting, abdominal pain, diarrhea, constipation, melena, hematochezia, other Genitourinary: denies: dysuria, frequency, incontinence, hematuria, retention, other Musculoskeletal: denies: neck pain, shoulder pain, arm pain, back pain, hand pain, leg pain, foot pain, other - Medication Medications: Active Medications Generic Name Dose Route Start Last Admin Trade Name Freq PRN Reason Stop Dose Admin Acetaminophen 650 mg 08/26/20 07:55 08/28/20 03:45 Acetaminophen 325 Mg Tab PO 650 mg Q4H PRN Administration Headache/Fever/Mild Pain (1-3) Apixaban 5 mg 08/27/20 21:00 08/29/20 22:49 Apixaban 5 Mg Tab PO 5 mg BID RAVI Administration Ascorbic Acid 1,000 mg 08/26/20 09:00 08/29/20 17:13 Ascorbic Acid 500 Mg Chewable Tablet PO Not Given DAILY [facility] Cholecalciferol 1,000 units 08/26/20 09:00 08/29/20 17:13 Cholecalciferol 1,000 Units (25 Mcg) Tab PO Not Given DAILY RAVI Dexamethasone 6 mg 08/26/20 09:00 08/29/20 09:36 Dexamethasone 4 Mg/Ml Vial SLOW IVP 6 mg DAILY RAVI Administration Guaifenesin/Dextromethorphan 15 ml 08/26/20 07:55 08/26/20 11:53 Guaifenesin Dm 100-10/5 Ml Udcup PO 15 ml Q4H PRN Administration Cough Remdesivir 100 mg/ Sodium 250 mls @ 250 mls/hr 08/27/20 18:00 08/29/20 17:06 Chloride IV 08/30/20 18:59 250 mls 1800 RAVI Administration Dexmedetomidine HCl 400 mcg/ 100 mls @ 0 mls/hr 08/27/20 16:00 08/30/20 06:32 Sodium Chloride IVPB 100 mls INF RAVI Administration Protocol Per Protocol Dextrose/Sodium Chloride 1,000 mls @ 75 mls/hr 08/28/20 14:00 08/30/20 06:31 D5 1/2 Ns IV 1,000 mls .[id number] RAVI Administration Lorazepam 0.5 mg 08/27/20 11:09 08/28/20 03:45 Lorazepam 2 Mg/Ml Vial SLOW IVP 0.5 mg Q6H PRN Administration Anxiety/Agitation Pantoprazole Sodium 40 mg 08/28/20 09:00 08/29/20 09:36 Pantoprazole 40 Mg Vial IVP 40 mg DAILY RAVI Administration Zinc Sulfate 220 mg 08/26/20 09:00 08/29/20 17:07 Zinc Sulfate 220 Mg Cap PO Not Given DAILY RAVI - Exam General Appearance: NAD, awake alert Eye: PERRL, anicteric sclera ENT: normocephalic atraumatic, no oropharyngeal lesions Neck: supple, symmetric, no JVD, no thyromegaly Heart: RRR, no murmur, no gallops, no rubs Respiratory: no wheezes, no rales, no ronchi Respiratory - other findings: Reduced air entry at base, Gastrointestinal: soft, non-tender, non-distended, normal bowel sounds Extremities: no cyanosis, no clubbing, no edema Skin: normal turgor, no lesions Neurological: no focal deficits Musculoskeletal: normal tone, normal strength Hosp A/P (1) Acute respiratory failure due to COVID-19 Code(s): U07.1 - COVID-19; J96.00 - ACUTE RESPIRATORY FAILURE, UNSP W HYPOXIA OR HYPERCAPNIA Status: Acute (2) Pneumonia due to 2019 novel coronavirus Code(s): U07.1 - COVID-19; J12.82 - PNEUMONIA DUE TO CORONAVIRUS DISEASE 2019 Status: Acute (3) Elevated d-dimer Code(s): R79.89 - OTHER SPECIFIED ABNORMAL FINDINGS OF BLOOD CHEMISTRY Status: Acute (4) Obesity (BMI 30.0-34.9) Code(s): E66.9 - OBESITY, UNSPECIFIED Status: Chronic - Plan old records reviewed/req, continue antibiotics, respiratory therapy Continue remdesivir as per protocol, today is last dose of remdesivir S/p convalescent plasma Continue empiric Rocephin , patient has completed azithromycin Continue dexamethasone to finish for total 10 days Patient is requiring BiPAP, wean off BiPAP as tolerated and consider high flow oxygen Continue Precedex for slight sedation Continue vitamin supplementation Patient will be monitored in IMCU for any deterioration, Pulmonology recommendation appreciated Continue Eliquis for DVT prophylaxis Monitor labs and inflammatory markers
[2020-08-30] MEDS: Ascorbic Acid 500 mg Chewable Tablet PO SCH (17:24)
[2020-08-30] MEDS: Apixaban 5 MG TAB PO SCH ×2 (17:24→20:14)
[2020-08-30] MEDS: Pantoprazole 40 MG VIAL IVP SCH (17:25)
[2020-08-30] MEDS: Zinc Sulfate 220 MG CAP PO SCH (17:25)
[2020-08-30] MEDS: Cholecalciferol 1,000 UNITS (25 MCG) TAB PO SCH (17:25)
[2020-08-30] MEDS: REMDESIVIR (EUA) 100 MG in Sodium Chloride 0.9% 250 ML 230 ML IV SCH (17:26)
[2020-08-30] MEDS: Acetaminophen 325 MG TAB PO PRN (20:14)
[2020-08-31 03:49] LABS: #Basophils 0.1 thou/uL (0.0-0.2); #Lymphocytes 0.3 thou/uL (1.20-3.40); #Monocytes 0.2 thou/uL (0.11-0.59); #Neutrophils 14.7 thou/uL (1.40-6.50); %Basophils 0.9 % (0.0-1.0); %Eosinophils 0.1 % (0.0-10.0); %Lymphocytes 1.6 % (21.0-51.0); %Monocytes 1.5 % (0.0-10.0); %Neutrophils 95.9 % (42.0-75.0); Hemoglobin 13.6 g/dL (14.0-18.0); Mean Corpuscular HGB CONC 33.1 g/dL (32.0-36.0); Mean Corpuscular Hemoglobin 30.6 pg (27.0-31.0); Mean Corpuscular Volume 92.5 fL (78.0-98.0); Platelet Count 263 thou/uL (130-400); RBC Distribution Width 12.2 % (11.5-14.5); Red Blood Cell (RBC) Count 4.43 mill/uL (4.70-6.10); White Blood Cell (WBC) Count 15.3 thou/uL (4.8-10.8)
[2020-08-31 04:08] LABS: Anion Gap 12 mmol/L (10-20); BUN (Urea Nitrogen) 19 mg/dL (8.9-20.6); Calc. Creatinine Clearance 148 mL/min (70-130); Calcium 8.5 mg/dL (7.8-10.44); Carbon Dioxide 27 mmol/L (22-29); Chloride 100 mmol/L (98-107); Glucose 153 mg/dL (70-105); Potassium 4.8 mmol/L (3.5-5.1); Sodium 134 mmol/L (136-145)
[2020-08-31 05:35] LABS: ALT (SGPT) 42 U/L (8-55); AST (SGOT) 37 U/L (5-34); Albumin 2.7 g/dL (3.5-5.0); Alkaline Phosphatase 57 U/L (40-110); Bilirubin, Direct 0.4 mg/dL (0.1-0.3); Bilirubin, Total 0.6 mg/dL (0.2-1.2); Protein, Total 6.7 g/dL (6.0-8.3)
--- NOTE | 2020-08-31 08:04 | RAD ---
EXAM: CHEST ONE VIEW HISTORY: Pneumonia. Follow-up evaluation. COMPARISON: 08/30/2020 FINDINGS: Cardiac silhouette is within normal limits. There are increased interstitial and alveolar opacities s een within the lungs bilaterally suggesting bilateral pneumonia and likely Covid pneumonia in the correct clinical scenario. Parenchymal lung changes are similar to prior exam as well as study of 08/13. There is subcutaneous emphysema seen in the supraclavicular locations bilaterally. This raises suspicion for pneumothorax, but no obvious pneumothorax is present on this exam. There was que stion of pneumomediastinum on the prior exam, but this is not appreciated on current study. IMPRESSION: 1. Bilateral parenchymal airspace opacities not significantly changed likely related to bilateral pne umonia, and radiographic findings are suggestive of Covid pneumonia. 2. Interval development of subcutaneous emphysema in the supraclavicular locations which raises possi bility of a pneumothorax, but no obvious pneumothorax is seen on this exam. Prior examination questioned possibility of pneumomediastinum, but this is not definitively appreciated on current stud y.
--- NOTE | 2020-08-31 08:25 | PRG ---
DATE OF SERVICE: SUBJECTIVE: The patient is much better today. He is currently on BiPAP, but saturating about 100% on 50% oxygen. OBJECTIVE: VITAL SIGNS: Temperature 98.8, pulse 64, blood pressure 107/63, respiratory rate 22. HEENT: Unremarkable. NECK: No adenopathy or JVD. LUNGS: Clear. CARDIAC: S1 and S2. Regular. ABDOMEN: Soft. EXTREMITIES: No edema. His chest x-ray continues to show bilateral infiltrates, although better. LABORATORY DATA: Sodium 134, potassium 4.2, chloride 100, CO2 of 27, BUN 19, creatinine 0.8, glucose 153. White blood cell count 15.3, hematocrit 41, and platelet count 263. ASSESSMENT: 1. COVID-19 pneumonia. 2. Acute hypoxic respiratory failure, requiring mechanical ventilation-noninvasive. PLAN: 1. Weaned high-flow oxygen today. Spoke with the respiratory therapist. 2. Continue anticoagulation. 3. Reduce steroid dose. Job ID: [id number]
[2020-08-31] MEDS: Saccharomyces boulardii 250 MG CAP PO SCH (09:19)
[2020-08-31] MEDS: Dexamethasone 4 mg/ml Vial SLOW IVP SCH (09:19)
[2020-08-31] MEDS: Pantoprazole 40 MG VIAL IVP SCH (09:19)
[2020-08-31] MEDS: Zinc Sulfate 220 MG CAP PO SCH (09:20)
[2020-08-31] MEDS: Ascorbic Acid 500 mg Chewable Tablet PO SCH (09:20)
[2020-08-31] MEDS: Apixaban 5 MG TAB PO SCH ×2 (09:20→20:11)
[2020-08-31] MEDS: Cholecalciferol 1,000 UNITS (25 MCG) TAB PO SCH (09:20)
[2020-08-31] MEDS: Dextrose 5 %-0.45 % NaCl 1,000 ML IV SCH (10:01)
[2020-08-31] MEDS: Piperacillin/Tazobactam 4.5 GM in Sodium Chloride 0.9% 100 ML IVPB SCH ×3 (11:46→23:02)
--- NOTE | 2020-08-31 14:11 | PDOC.HOSPP ---
- Subjective Encounter Date: 08/31/20 Encounter Time: 11:00 Subjective: Patient seen and examined. No new complaints. No overnight events - Objective Vital Signs & Weight: Vital Signs (12 hours) Temp Pulse Pulse Ox 08/31/20 08:47 95 08/31/20 04:00 98.8 F 08/31/20 02:58 67 Weight Admit Weight 190 lb Weight 190 lb Most Recent Monitor Data Heart Rate from ECG 64 NIBP 107/63 NIBP BP-Mean 77 Respiration from ECG 22 SpO2 100 I&O: 08/30/20 08/31/20 09/01/20 06:59 06:59 06:59 Intake Total 2644.4 3017 Output Total 2270 2470 Balance 374.4 547 Result Diagrams: 08/31/20 03:20 08/31/20 03:20 Radiology Reviewed by me: Yes (Chest x-ray reviewed) EKG Reviewed by me: Yes (Normal sinus rhythm) Hospitalist ROS - Review of Systems Constitutional: reports: weakness. denies: fever, chills, sweats, malaise, other Respiratory: reports: shortness of breath, SOB with excertion. denies: cough, dry, hemoptysis, pleuritic pain, sputum, wheezing, other Cardiovascular: denies: chest pain, palpitations, orthopnea, paroxysmal noc. dyspnea, edema, light headedness, other Gastrointestinal: denies: nausea, vomiting, abdominal pain, diarrhea, constipation, melena, hematochezia, other Genitourinary: denies: dysuria, frequency, incontinence, hematuria, retention, other Musculoskeletal: denies: neck pain, shoulder pain, arm pain, back pain, hand pain, leg pain, foot pain, other - Medication Medications: Active Medications Generic Name Dose Route Start Last Admin Trade Name Freq PRN Reason Stop Dose Admin Acetaminophen 650 mg 08/26/20 07:55 08/30/20 20:14 Acetaminophen 325 Mg Tab PO 650 mg Q4H PRN Administration Headache/Fever/Mild Pain (1-3) Apixaban 5 mg 08/27/20 21:00 08/31/20 09:20 Apixaban 5 Mg Tab PO 5 mg BID RAVI Administration Ascorbic Acid 1,000 mg 08/26/20 09:00 08/31/20 09:20 Ascorbic Acid 500 Mg Chewable Tablet PO 1,000 mg DAILY RAVI Administration Cholecalciferol 1,000 units 08/26/20 09:00 08/31/20 09:20 Cholecalciferol 1,000 Units (25 Mcg) Tab PO 1,000 units DAILY RAVI Administration Dexamethasone 4 mg 08/31/20 09:00 08/31/20 09:19 Dexamethasone 4 Mg/Ml Vial SLOW IVP 4 mg DAILY RAVI Administration Guaifenesin/Dextromethorphan 15 ml 08/26/20 07:55 08/26/20 11:53 Guaifenesin Dm 100-10/5 Ml Udcup PO 15 ml Q4H PRN Administration Cough Dexmedetomidine HCl 400 mcg/ 100 mls @ 0 mls/hr 08/27/20 16:00 08/31/20 02:35 Sodium Chloride IVPB 100 mls INF RAVI Administration Protocol Per Protocol Dextrose/Sodium Chloride 1,000 mls @ 75 mls/hr 08/28/20 14:00 08/31/20 10:01 D5 1/2 Ns IV 1,000 mls .[id number] RAVI Administration Piperacillin Sod/Tazobactam 100 mls @ 200 mls/hr 08/31/20 12:00 08/31/20 11:46 Sod 4.5 gm/ Sodium Chloride IVPB 100 mls Q6HR RAVI Administration Lorazepam 0.5 mg 08/27/20 11:09 08/28/20 03:45 Lorazepam 2 Mg/Ml Vial SLOW IVP 0.5 mg Q6H PRN Administration Anxiety/Agitation Pantoprazole Sodium 40 mg 08/28/20 09:00 08/31/20 09:19 Pantoprazole 40 Mg Vial IVP 40 mg DAILY RAVI Administration Saccharomyces Boulardii 250 mg 08/31/20 09:00 08/31/20 09:19 Saccharomyces Boulardii 250 Mg Cap PO 250 mg DAILY RAVI Administration Sodium Chloride 10 ml 08/31/20 09:00 08/31/20 09:20 Flush - Normal Saline 10 Ml Syringe IVF 10 ml Q12HR RAVI Administration Zinc Sulfate 220 mg 08/26/20 09:00 08/31/20 09:20 Zinc Sulfate 220 Mg Cap PO 220 mg DAILY RAVI Administration - Exam General Appearance: NAD, awake alert Eye: PERRL, anicteric sclera ENT: normocephalic atraumatic, no oropharyngeal lesions Neck: supple, symmetric, no JVD Heart: RRR, no murmur, no gallops Respiratory: no wheezes, no rales, no ronchi Gastrointestinal: soft, non-tender, non-distended, normal bowel sounds Extremities: no cyanosis, no clubbing, no edema Skin: normal turgor, no lesions Neurological: no focal deficits Musculoskeletal: normal tone, normal strength Psychiatric: normal affect, normal behavior Hosp A/P (1) Acute respiratory failure due to COVID-19 Code(s): U07.1 - COVID-19; J96.00 - ACUTE RESPIRATORY FAILURE, UNSP W HYPOXIA OR HYPERCAPNIA Status: Acute (2) Pneumonia due to 2019 novel coronavirus Code(s): U07.1 - COVID-19; J12.82 - PNEUMONIA DUE TO CORONAVIRUS DISEASE 2019 Status: Acute (3) Elevated d-dimer Code(s): R79.89 - OTHER SPECIFIED ABNORMAL FINDINGS OF BLOOD CHEMISTRY Status: Acute (4) Obesity (BMI 30.0-34.9) Code(s): E66.9 - OBESITY, UNSPECIFIED Status: Chronic - Plan old records reviewed/req, continue antibiotics, respiratory therapy Today chest x-ray showing bilateral parenchymal airspace opacity, there was suspicious finding of subcutaneous emphysema and that there was concern of pneumomediastinum on chest x-ray, will defer further investigation to pulmonology if appropriate, we have change antibiotic to Zosyn, today we will try to wean off from BiPAP to high flow oxygen and monitor while in hospital, monitor inflammatory markers and repeat labs tomorrow, monitor with chest x-ray, patient has completed remdesivir, s/p convalescent plasma,
--- NOTE | 2020-08-31 15:40 | CON ---
DATE OF CONSULTATION: HISTORY OF PRESENT ILLNESS: Mr. Galindo is in the hospital with COVID pneumonia. He has been on high-flow oxygen in the intensive care unit. He has numerous chest x-rays showing typical COVID pneumonia appearing lung parenchyma. On today's x-ray, he has a small amount of subcutaneous emphysema in his supraclavicular fossa. He is actually doing better than he has been doing recently. There is no pneumothorax. There is no mediastinal stripe. PAST SURGICAL HISTORY: None. CURRENT MEDICATIONS: Noted. ALLERGIES: NONE. SOCIAL HISTORY: He does not use tobacco. PHYSICAL EXAMINATION: Not performed due to the patient being COVID positive. I did not physically examined him from the most recent notes by Dr. Leon. His lungs are improving and are clear to auscultation. He had no adenopathy. Palpable subcutaneous emphysema in his neck. ASSESSMENT AND PLAN: I would continue to follow chest x-rays on him. At this point, there is no indication for any interventional treatment. Job ID: [id number]
[2020-09-01] MEDS: Acetaminophen 325 MG TAB PO PRN (00:14)
[2020-09-01 03:32] LABS: #Basophils 0.1 thou/uL (0.0-0.2); #Eosinphils 0.2 thou/uL (0.0-0.7); #Lymphocytes 0.8 thou/uL (1.20-3.40); #Monocytes 0.7 thou/uL (0.11-0.59); #Neutrophils 11.3 thou/uL (1.40-6.50); %Basophils 0.5 % (0.0-1.0); %Eosinophils 1.4 % (0.0-10.0); %Lymphocytes 5.9 % (21.0-51.0); %Monocytes 5.5 % (0.0-10.0); %Neutrophils 86.7 % (42.0-75.0); Hemoglobin 13.5 g/dL (14.0-18.0); Mean Corpuscular HGB CONC 33.4 g/dL (32.0-36.0); Mean Corpuscular Hemoglobin 30.6 pg (27.0-31.0); Mean Corpuscular Volume 91.6 fL (78.0-98.0); Mean Platelet Volume 8.2 fL (7.4-10.4); Platelet Count 251 thou/uL (130-400); RBC Distribution Width 12.3 % (11.5-14.5); Red Blood Cell (RBC) Count 4.41 mill/uL (4.70-6.10); White Blood Cell (WBC) Count 13.1 thou/uL (4.8-10.8)
[2020-09-01] MEDS: Benzonatate 100 MG CAP PO PRN ×2 (03:59→08:30)
[2020-09-01 04:10] LABS: Anion Gap 12 mmol/L (10-20); BUN (Urea Nitrogen) 21 mg/dL (8.9-20.6); Calc. Creatinine Clearance 153 mL/min (70-130); Calcium 8.4 mg/dL (7.8-10.44); Carbon Dioxide 26 mmol/L (22-29); Chloride 102 mmol/L (98-107); Glucose 89 mg/dL (70-105); Sodium 136 mmol/L (136-145)
[2020-09-01] MEDS: Piperacillin/Tazobactam 4.5 GM in Sodium Chloride 0.9% 100 ML IVPB SCH ×3 (06:11→17:48)
[2020-09-01] MEDS: Ascorbic Acid 500 mg Chewable Tablet PO SCH (07:56)
[2020-09-01] MEDS: Apixaban 5 MG TAB PO SCH ×2 (07:56→20:58)
[2020-09-01] MEDS: Cholecalciferol 1,000 UNITS (25 MCG) TAB PO SCH (07:57)
[2020-09-01] MEDS: Dexamethasone 4 mg/ml Vial SLOW IVP SCH (07:57)
[2020-09-01] MEDS: Pantoprazole 40 MG VIAL IVP SCH (07:57)
[2020-09-01] MEDS: Zinc Sulfate 220 MG CAP PO SCH (07:57)
[2020-09-01] MEDS: Saccharomyces boulardii 250 MG CAP PO SCH (07:57)
--- NOTE | 2020-09-01 07:59 | RAD ---
Exam: Chest one view HISTORY:COVID pneumonia. Follow-up exam. Comparison: 08/30/2020 and 08/31/2020 FINDINGS: Cardiac silhouette: Normal Aorta: Unremarkable Pulmonary vessels: Normal Costophrenic angles: Clear LUNGS: Stable multi lobar COVID pneumonia. Soft tissues: Redemonstration of subcutaneous emphysema predominantly in the lower left and right nec k. Pneumothorax: No obvious pneumothorax. Osseous abnormalities: None IMPRESSION: 1. Stable multi lobar COVID pneumonia 2. Redemonstration of subcutaneous emphysema in the left or right lower neck without obvious pneumoth orax.
--- NOTE | 2020-09-01 08:41 | PRG ---
DATE OF SERVICE: 09/01/2020 TIME SPENT: This is 30 minutes of critical care time. SUBJECTIVE: The patient has been doing much better today. He has been on BiPAP since yesterday on high-flow oxygen 50%. OBJECTIVE: VITAL SIGNS: On exam, temperature 98, pulse 67, O2 saturation 97%, and blood pressure 93/55. HEENT: Unremarkable. NECK: No JVD. LUNGS: Clear anteriorly. CARDIAC: S1 and S2. Regular. ABDOMEN: Soft. EXTREMITIES: No edema. LABORATORY DATA: Sodium 136, potassium, chloride 102, CO2 of 26, BUN 21, creatinine 0.7, and glucose 89. White blood cell count 13, hematocrit 40, and platelet count 251. The chest x-ray from today shows typical bilateral COVID changes. ASSESSMENT: 1. COVID-19 pneumonia with improving oxygenation - the patient has been weaned off BiPAP. 2. Pneumomediastinum. PLAN: 1. The patient to transfer to the floor. 2. Continue steroids, anticoagulation. 3. Increase activity. 4. Use high-flow oxygen as needed. Job ID: [id number]
--- NOTE | 2020-09-01 09:59 | PRG ---
DATE OF SERVICE: 09/01/2020 SUBJECTIVE: Mr. Galindo remains stable overnight. Oxygen saturations are 100% on 50% oxygen. Chest x-ray shows continued subcutaneous emphysema. There is no overt pneumothorax. IMPRESSION AND PLAN: Subcutaneous emphysema with no pneumothorax. I would not change any current treatment. Job ID: [id number]
--- NOTE | 2020-09-01 19:03 | PDOC.HOSPP ---
- Subjective Encounter Date: 09/01/20 Encounter Time: 15:00 Subjective: Patient seen for follow-up regarding acute hypoxic respiratory failure. He is still on high flow oxygen. Reports feeling better. - Objective Vital Signs & Weight: Vital Signs (12 hours) Temp Pulse Resp BP Pulse Ox 09/01/20 16:27 98.2 F 86 18 95/61 98 09/01/20 11:13 98.3 F 86 17 95/61 98 09/01/20 10:10 98.4 F 74 20 93/60 94 L 09/01/20 07:50 97 09/01/20 07:39 94 L Weight Admit Weight 190 lb Weight 190 lb Most Recent Monitor Data Heart Rate from ECG 89 NIBP 99/53 NIBP BP-Mean 68 Respiration from ECG 23 SpO2 97 I&O: 08/31/20 09/01/20 09/02/20 06:59 06:59 06:59 Intake Total 3017 2859.5 611 Output Total 2470 2700 1450 Balance 547 159.5 -839 Result Diagrams: 09/01/20 03:15 09/01/20 03:15 Additional Labs: Labs and MAR reviewed by mt Hospitalist ROS - Review of Systems Respiratory: reports: cough, dry. denies: shortness of breath, hemoptysis, SOB with excertion, pleuritic pain, sputum, wheezing Cardiovascular: denies: chest pain, palpitations, orthopnea, paroxysmal noc. dyspnea, edema, light headedness - Medication Medications: Active Medications Generic Name Dose Route Start Last Admin Trade Name Freq PRN Reason Stop Dose Admin Acetaminophen 650 mg 08/26/20 07:55 09/01/20 00:14 Acetaminophen 325 Mg Tab PO 650 mg Q4H PRN Administration Headache/Fever/Mild Pain (1-3) Apixaban 5 mg 08/27/20 21:00 09/01/20 07:56 Apixaban 5 Mg Tab PO 5 mg BID RAVI Administration Ascorbic Acid 1,000 mg 08/26/20 09:00 09/01/20 07:56 Ascorbic Acid 500 Mg Chewable Tablet PO 1,000 mg DAILY RAVI Administration Benzonatate 100 mg 08/26/20 07:55 09/01/20 08:30 Benzonatate 100 Mg Cap PO 100 mg Q6H PRN Administration Cough Cholecalciferol 1,000 units 08/26/20 09:00 09/01/20 07:57 Cholecalciferol 1,000 Units (25 Mcg) Tab PO 1,000 units DAILY RAVI Administration Dexamethasone 4 mg 08/31/20 09:00 09/01/20 07:57 Dexamethasone 4 Mg/Ml Vial SLOW IVP 4 mg DAILY RAVI Administration Guaifenesin/Dextromethorphan 15 ml 08/26/20 07:55 08/26/20 11:53 Guaifenesin Dm 100-10/5 Ml Udcup PO 15 ml Q4H PRN Administration Cough Dextrose/Sodium Chloride 1,000 mls @ 37.5 mls/hr 08/28/20 14:00 08/31/20 10:01 D5 1/2 Ns IV 1,000 mls .Q24H RAVI Administration Piperacillin Sod/Tazobactam 100 mls @ 200 mls/hr 08/31/20 12:00 09/01/20 17:48 Sod 4.5 gm/ Sodium Chloride IVPB 100 mls Q6HR RAVI Administration Lorazepam 0.5 mg 08/27/20 11:09 08/28/20 03:45 Lorazepam 2 Mg/Ml Vial SLOW IVP 0.5 mg Q6H PRN Administration Anxiety/Agitation Saccharomyces Boulardii 250 mg 08/31/20 09:00 09/01/20 07:57 Saccharomyces Boulardii 250 Mg Cap PO 250 mg DAILY RAVI Administration Sodium Chloride 10 ml 08/31/20 09:00 09/01/20 07:57 Flush - Normal Saline 10 Ml Syringe IVF 10 ml Q12HR RAVI Administration Zinc Sulfate 220 mg 08/26/20 09:00 09/01/20 07:57 Zinc Sulfate 220 Mg Cap PO 220 mg DAILY RAVI Administration - Exam General Appearance: awake alert Eye: anicteric sclera ENT: normocephalic atraumatic Neck: supple Heart: RRR Respiratory: rhonchi Gastrointestinal: soft, non-tender Skin: no rashes Psychiatric: normal affect, normal behavior Hosp A/P - Plan Hosp A/P (1) Acute respiratory failure due to COVID-19 Code(s): U07.1 - COVID-19; J96.00 - ACUTE RESPIRATORY FAILURE, UNSP W HYPOXIA OR HYPERCAPNIA Status: Acute (2) Pneumonia due to 2019 novel coronavirus Code(s): U07.1 - COVID-19; J12.82 - PNEUMONIA DUE TO CORONAVIRUS DISEASE 2019 Status: Acute (43 Obesity (BMI 30.0-34.9) Code(s): E66.9 - OBESITY, UNSPECIFIED Status: Chronic - Plan Continue dexamethasone 4 mg IV daily. Continue vitamin C and zinc. Continue Zosyn. Patient is currently on high flow oxygen. He has received convalescent plasma. He has completed course of remdesivir. Continue apixaban
[2020-09-01] MEDS: Dextrose 5 %-0.45 % NaCl 1,000 ML IV SCH (20:58)
[2020-09-02] MEDS: Piperacillin/Tazobactam 4.5 GM in Sodium Chloride 0.9% 100 ML IVPB SCH ×4 (00:17→17:15)
[2020-09-02] MEDS: Benzonatate 100 MG CAP PO PRN ×2 (00:50→20:44)
[2020-09-02] MEDS: Dexamethasone 4 mg/ml Vial SLOW IVP SCH (08:09)
[2020-09-02] MEDS: Zinc Sulfate 220 MG CAP PO SCH (08:10)
[2020-09-02] MEDS: Apixaban 5 MG TAB PO SCH ×2 (08:10→20:43)
[2020-09-02] MEDS: Cholecalciferol 1,000 UNITS (25 MCG) TAB PO SCH (08:10)
[2020-09-02] MEDS: Ascorbic Acid 500 mg Chewable Tablet PO SCH (08:10)
[2020-09-02] MEDS: Saccharomyces boulardii 250 MG CAP PO SCH (08:10)
[2020-09-02] MEDS ORDERED: Melatonin 3 MG TAB PO PRN (10:59)
--- NOTE | 2020-09-02 15:00 | PDOC.HOSPP ---
- Subjective Encounter Date: 09/02/20 Encounter Time: 10:30 Subjective: Patient seen for follow-up regarding COVID-19 pneumonia. Denies chest pain. - Objective Vital Signs & Weight: Vital Signs (12 hours) Temp Pulse Resp BP Pulse Ox 09/02/20 11:27 98.2 F 88 15 94/60 94 L 09/02/20 10:30 95 09/02/20 08:02 97 09/02/20 08:00 97 09/02/20 07:28 98.6 F 83 16 86/49 L 97 Weight Admit Weight 190 lb Weight 190 lb Most Recent Monitor Data Heart Rate from ECG 89 NIBP 99/53 NIBP BP-Mean 68 Respiration from ECG 23 SpO2 97 I&O: 09/01/20 09/02/20 09/03/20 06:59 06:59 06:59 Intake Total 2859.5 611 Output Total 2700 2350 Balance 159.5 -1739 Result Diagrams: 09/01/20 03:15 09/01/20 03:15 Additional Labs: I reviewed patient's labs and MAR Hospitalist ROS - Review of Systems Respiratory: reports: cough, SOB with excertion Cardiovascular: denies: chest pain, palpitations, orthopnea, paroxysmal noc. dyspnea, edema, light headedness Gastrointestinal: denies: nausea, vomiting, abdominal pain, diarrhea, constipation, melena, hematochezia - Medication Medications: Active Medications Generic Name Dose Route Start Last Admin Trade Name Freq PRN Reason Stop Dose Admin Acetaminophen 650 mg 08/26/20 07:55 09/01/20 00:14 Acetaminophen 325 Mg Tab PO 650 mg Q4H PRN Administration Headache/Fever/Mild Pain (1-3) Apixaban 5 mg 08/27/20 21:00 09/02/20 08:10 Apixaban 5 Mg Tab PO 5 mg BID RAVI Administration Ascorbic Acid 1,000 mg 08/26/20 09:00 09/02/20 08:10 Ascorbic Acid 500 Mg Chewable Tablet PO 1,000 mg DAILY RAVI Administration Benzonatate 100 mg 08/26/20 07:55 09/02/20 00:50 Benzonatate 100 Mg Cap PO 100 mg Q6H PRN Administration Cough Cholecalciferol 1,000 units 08/26/20 09:00 09/02/20 08:10 Cholecalciferol 1,000 Units (25 Mcg) Tab PO 1,000 units DAILY RAVI Administration Dexamethasone 4 mg 08/31/20 09:00 09/02/20 08:09 Dexamethasone 4 Mg/Ml Vial SLOW IVP 4 mg DAILY RAVI Administration Guaifenesin/Dextromethorphan 15 ml 08/26/20 07:55 08/26/20 11:53 Guaifenesin Dm 100-10/5 Ml Udcup PO 15 ml Q4H PRN Administration Cough Dextrose/Sodium Chloride 1,000 mls @ 37.5 mls/hr 08/28/20 14:00 09/01/20 20:58 D5 1/2 Ns IV 1,000 mls .Q24H RAVI Administration Piperacillin Sod/Tazobactam 100 mls @ 200 mls/hr 08/31/20 12:00 09/02/20 12:41 Sod 4.5 gm/ Sodium Chloride IVPB 100 mls Q6HR RAVI Administration Lorazepam 0.5 mg 08/27/20 11:09 08/28/20 03:45 Lorazepam 2 Mg/Ml Vial SLOW IVP 0.5 mg Q6H PRN Administration Anxiety/Agitation Pantoprazole Sodium 40 mg 09/02/20 09:00 09/02/20 08:10 Pantoprazole 40 Mg Tab PO 40 mg DAILY RAVI Administration Saccharomyces Boulardii 250 mg 08/31/20 09:00 09/02/20 08:10 Saccharomyces Boulardii 250 Mg Cap PO 250 mg DAILY RAVI Administration Sodium Chloride 10 ml 08/31/20 09:00 09/02/20 08:10 Flush - Normal Saline 10 Ml Syringe IVF 10 ml Q12HR RAVI Administration Zinc Sulfate 220 mg 08/26/20 09:00 09/02/20 08:10 Zinc Sulfate 220 Mg Cap PO 220 mg DAILY RAVI Administration - Exam General Appearance: awake alert Eye: anicteric sclera ENT: normocephalic atraumatic, moist mucosa Neck: supple Heart: RRR Respiratory: CTAB Gastrointestinal: soft Skin: no rashes Psychiatric: normal affect, normal behavior Hosp A/P - Plan Hosp A/P (1) Acute respiratory failure due to COVID-19 Code(s): U07.1 - COVID-19; J96.00 - ACUTE RESPIRATORY FAILURE, UNSP W HYPOXIA OR HYPERCAPNIA Status: Acute (2) Pneumonia due to 2019 novel coronavirus Code(s): U07.1 - COVID-19; J12.82 - PNEUMONIA DUE TO CORONAVIRUS DISEASE 2019 Status: Acute (43 Obesity (BMI 30.0-34.9) Code(s): E66.9 - OBESITY, UNSPECIFIED Status: Chronic - Plan Patient is on dexamethasone 4 mg IV daily. Patient is on vitamin C and zinc. Patient is on Zosyn. Continue high flow oxygen. Status post convalescent plasma. Status post course of remdesivir. Patient is on apixaban
[2020-09-02] MEDS: Dextrose 5 %-0.45 % NaCl 1,000 ML IV SCH (20:52)
[2020-09-03] MEDS: Piperacillin/Tazobactam 4.5 GM in Sodium Chloride 0.9% 100 ML IVPB SCH ×4 (00:24→19:01)
[2020-09-03] MEDS: Zinc Sulfate 220 MG CAP PO SCH (09:00)
[2020-09-03] MEDS: Saccharomyces boulardii 250 MG CAP PO SCH (09:01)
[2020-09-03] MEDS: Ascorbic Acid 500 mg Chewable Tablet PO SCH (09:01)
[2020-09-03] MEDS: Cholecalciferol 1,000 UNITS (25 MCG) TAB PO SCH (09:01)
[2020-09-03] MEDS: Apixaban 5 MG TAB PO SCH (09:02)
[2020-09-03] MEDS: Dexamethasone 4 mg/ml Vial SLOW IVP SCH (09:03)
--- NOTE | 2020-09-03 13:02 | PDOC.DS.DS ---
Provider - Provider Date of Admission: 08/26/20 02:30 Date of Discharge: 09/03/20 Admitting Provider: Maico Land MD Consultations: Pulmonary (Dr. Leon), Other (CV surgery: Dr. Whitley) Primary Care Physician: NO PCP PROVIDER Course - Hospital Course Hospital Course: Discharge diagnoses: 1. Acute hypoxic respiratory failure 2. COVID-19 pneumonia 3. Hyponatremia 4. Subcutaneous emphysema Hospital course: Patient is a pleasant 39-year-old gentleman who was admitted to the hospital on August 26, 2020 for acute hypoxic respiratory failure secondary to COVID-19 pneumonia. He was treated with BiPAP and steroids. He also received convalescent plasma. He was subsequently switched to high flow oxygen and tr ansferred to medical floor. He continued to improve gradually. Arrangements are being made for home oxygen at the time of discharge. Patient also developed subcutaneous emphysema in the supraclavicular fossa during this hospitalization. He was seen by CV surgery. No intervention was needed. He is being discharged home on apixaban 5 mg 2 times a day for 2 more weeks. He is advised to follow-up with primary care provider for decision regarding continuing anticoagulation. Resuscitation Status: 08/26/20 07:55 Resuscitation Status Routine Resuscitation Status: FULL: Full Resuscitation - Labs Lab Results: 09/01/20 03:15 09/01/20 03:15 - Physical Exam Vitals: Vital Signs (12 hours) Temp Pulse Resp BP Pulse Ox Pulse Ox Pulse Ox 09/03/20 11:14 94 L 95 09/03/20 08:45 96/58 L 09/03/20 07:11 98.3 F 77 16 73/44 L 97 09/03/20 05:54 79 97 09/03/20 04:00 98.4 F 87 18 81/51 L 96 Weight Admit Weight 190 lb Weight 190 lb Most Recent Monitor Data Heart Rate from ECG 89 NIBP 99/53 NIBP BP-Mean 68 Respiration from ECG 23 SpO2 97 Physical Exam: The patient was seen and examined on the day of discharge. Patient denies chest pain or shortness of breath. Vital signs are stable. S1 and S2 are heard. Lungs are clear to auscultation bilaterally. Plan - Discharge Medications Prescriptions: Dexamethasone 6 mg PO DAILY #3 tablet Apixaban [Eliquis] 5 mg PO BID #28 tab Cefdinir [Omnicef] 300 mg PO BID #14 cap Pantoprazole [Protonix] 40 mg PO DAILY #14 tab Ascorbic Acid [Vitamin C] 1,000 mg PO DAILY #7 tablet Zinc Sulfate [Zinc-220] 220 mg PO DAILY #7 capsule Home Medications: Medication Instructions Recorded Confirmed Type Apixaban [Eliquis] 5 mg PO BID #28 tab 09/03/20 Rx Ascorbic Acid [Vitamin C] 1,000 mg PO DAILY #7 tablet 09/03/20 Rx Cefdinir [Omnicef] 300 mg PO BID #14 cap 09/03/20 Rx Dexamethasone 6 mg PO DAILY #3 tablet 09/03/20 Rx Pantoprazole [Protonix] 40 mg PO DAILY #14 tab 09/03/20 Rx Zinc Sulfate [Zinc-220] 220 mg PO DAILY #7 capsule 09/03/20 Rx Allergies: No Known Allergies Allergy (Verified 08/26/20 05:34) - Discharge Instructions Discharge Instructions:: Follow-up with primary care provider to decide duration of anticoagulation. Activity:: Activity as Tolerated - Follow up Plan Referrals: PROVIDER,NO PCP [Primary Care Provider] - 3 Days Elie Whitley MD [Active] - Ke Leon MD [Active] - Disposition: HOME Quality - Care Measures CORE MEASURES:: N/A
[2020-09-03 20:02] VITALS: BP 90/63; TEMP 98.2
--- NOTE | 2020-09-07 02:33 | PQF ---
Dear : Addy Becerra Date 09/07/2020 Please exercise your independent, professional judgment in responding to the clarification form. Clinical indicators are provided on the bottom of this form for your review Based on your clinical judgment, can you please specify the infectious status of this patient? Please check appropriate box(es): [ ] Sepsis due to COVID19 Pneumonia [x ] Severe sepsis due to COVID19 Pneumonia with associated acute organ dysfunction: [ x ] Acute Respiratory Failure [ ] Septic Shock [ ] Localized infection without sepsis [ ] Other diagnosis please specify [ ] Unable to determine Physician Signature: Date/Time: For continuity of documentation, please document condition throughout progress notes and discharge summary. Thank You. To be completed by CDI/Coding staff for physician review: Present Clinical Indicators - Signs / Symptoms / Labs Results and Location in Medical Record [ x ] VS: BP: 96/65, P: 81, RR: 32, T: 98.1 ED Provider pg.2 [ x ] Moderate respiratory distress ED Provider pg.2 [ x ] Tachypneic ED Provider pg.2 [ x ] Modestly hypotensive ED Provider pg.3 [ x ] WBC: 21.7H, 15.7H, 9.5, 15.9H, 15.3H. 13.1H Laboratory [ x ] Consistent with bilateral extensive pneumonia H and P pg.1 [ x ] Acute hypoxic respiratory failure PN pg.1 08/28 [ x ] Chest Xray: multifocal airspace opacities are slightly worse Chest Xray 08/28 [ x ] Blood culture: no growth Laboratory 08/25 Present Risk Factors Results and Location in Medical Record [ x ] COVID Pneumonia H and P pg.13 [ x ] Obesity HP 08/26 [ x ] Emphysema DS 09/03 Present Treatments Results and Location in Medical Record [ x ] Oxygen supplementation ED Provider pg.2 [ x ] IV Fluids MAR [ x ] Rocephin 1 gm IV MAR [ x ] Azithromycin 50mg IVC MAR [ x ] Remdesivir 200,g IV MAR [ x ] Pulmonary Consult Dr. Leon 08/27 CDS/Circuit Tester Signature: Aldo Morgan Phone #: ext [phone] Date 09/07/2020 E[facility]
== END 2020-09-03 20:30 | disposition home or self-care (01) | DRG 871 ==
LOC: ERS 23:54 → T4-A 08-26 02:30 → IMCU/EMU 08-27 15:52 → T4-B 09-01 10:16
PROVIDERS: ADMIT Internal Medicine; ATTEND Internal Medicine
PROC: 8E0ZXY6 Isolation (ICD-10-PCS; principal; 2020-08-26)
PROC: XW033E5 Introduction of Remdesivir Anti-infective into Peripheral Vein, Percutaneous Approach, New Technology Group 5 (ICD-10-PCS; 2020-08-26)
PROC: XW13325 Transfusion of Convalescent Plasma (Nonautologous) into Peripheral Vein, Percutaneous Approach, New Technology Group 5 (ICD-10-PCS; 2020-08-27)
PROC: 5A09457 Assistance with Respiratory Ventilation, 24-96 Consecutive Hours, Continuous Positive Airway Pressure (ICD-10-PCS; 2020-08-27)
DX: A41.89 Other specified sepsis (principal); U07.1 COVID-19; J12.82 Pneumonia due to coronavirus disease 2019; J96.01 Acute respiratory failure with hypoxia; E87.1 Hypo-osmolality and hyponatremia; R65.20 Severe sepsis without septic shock; J98.2 Interstitial emphysema; E66.9 Obesity, unspecified; R79.89 Other specified abnormal findings of blood chemistry; Z68.30 Body mass index [BMI] 30.0-30.9, adult
CPT/HCPCS: 36415; 36430; 71045; 80048; 80053; 80076; 82565; 82728; 85025; 85379; 86140; 86850; 86900; 86901; 94660; 99285; C9113; J0456; J0696; J1100; J1940; J2060; J2543; J3490; J7050; P9017